=== PATIENT | male | born 1945 | race Caucasian/White ===

== ENCOUNTER 2022-05-26 14:03 | Inpatient (IN) | payer MEDICARE, OTHER ==
[~2022-05-26] VITALS: Ht 175.3 cm; Wt 75.8 kg
[~2022-05-26 14:03] MED LIST: ALBU2TAB4 PO; ASPI-543 PO; ATO40T PO; BUPR75TA10 PO; GLIP5TAB12 PO; LISI-275 PO; METF-370 PO; METO25TA5 PO; PRAS10TA18 PO; TAM04C PO
[2022-05-26] MEDS ORDERED: ASPirin 81 mg TAB PO ONE (14:30)
[2022-05-26 14:49] LABS: Basophils # (auto) 0.1 10 ^3/uL (0-0.2); Basophils % (auto) 0.9 % (0.0-2.0); Eosinophils # (auto) 0.6 10 ^3/uL (0-0.8); Eosinophils % (auto) 8.8 % (0.0-7.0); Hematocrit 40.7 % (41.0-53.0); Hemoglobin 13.5 g/dL (13.5-17.5); Lymphocytes # (auto) 1.9 10 ^3/uL (0.4-5.4); Lymphocytes % (auto) 27.3 % (10.0-50.0); Mean Corpuscular Hemoglobin 30.8 pg (28.0-32.0); Mean Corpuscular Hgb Conc. 33.3 g/dL (32.0-36.0); Mean Corpuscular Volume 92.6 fL (80.0-100.0); Monocytes # (auto) 0.4 10 ^3/uL (0-1.3); Monocytes % (auto) 5.8 % (0.0-12.0); Neutrophils # (auto) 4.1 10 ^3/uL (1.6-8.6); Neutrophils % (auto) 57.2 % (37.0-80.0); Red Blood Cells 4.39 10^6/uL (4.5-5.90); Red Cell Distribution Width 14.9 % (11.8-14.3); White Blood Cell 7.1 10^3/uL (4.4-10.8)
[2022-05-26 15:03] LABS: Albumin 3.6 g/dL (3.4-5.0); Calcium 8.8 mg/dL (8.5-10.1); Potassium 4.5 mmol/L (3.5-5.1)
[2022-05-26 15:07] LABS: BUN/Creatinine Ratio 14.4; Bilirubin, Total 0.3 mg/dL (0.2-1.0)
[2022-05-26] MEDS ORDERED: NITROGLYCERIN 0.4 MG SL TAB SL PRN (16:30)
[2022-05-26] MEDS ORDERED: PANTOPRAZOLE 40 MG/10 ML VIAL INJ IV ONE (16:30)
[2022-05-26] MEDS ORDERED: ONDANSETRON HCL 4 MG/2 ML VIAL IV PRN (16:30)
[2022-05-26] MEDS ORDERED: MORPHINE SULFATE INJ 2 MG/ml SYRG IV PRN (16:30)
[2022-05-26] MEDS ORDERED: DOCUSATE SOD 100 MG CAP PO PRN (16:30)
[2022-05-26 17:02] LABS: Cholesterol 99 mg/dL (< 200); HDL Cholesterol 47 mg/dL (40-59); LDL Cholesterol 53 mg/dL (< 100); Triglycerides 95 mg/dL (< 150)
[2022-05-26] MEDS ORDERED: NITROGLYCERIN 2% OINT 1GM PKG TD PRN (17:15)
[2022-05-26] MEDS ORDERED: hydrALAZINE HCL 20 MG/ML VL IV PRN (17:15)
[2022-05-26] MEDS ORDERED: DEXTROSE (50%) 50ML SYRG IV PRN (17:30)
[2022-05-26] MEDS: InsuLIN REG 1unit/0.01ml Soln (100units/ml) SC SCH (22:04)
[2022-05-26] MEDS: ACCU-CHEK COMFORT CURVE STRIP VI SCH (22:05)
[2022-05-26] MEDS: ATORVASTATIN 20 MG TAB PO SCH (22:05)
[2022-05-27 00:19] VITALS: BP 109/57
[2022-05-27 01:10] VITALS: BP 109/57
[2022-05-27 02:47] VITALS: BP 120/62
[2022-05-27 03:47] LABS: Urine WBC None Seen /hpf (0 - 3)
[2022-05-27 04:02] LABS: Urine Bacteria NONE SEEN /hpf (None Seen); Urine Blood 3+ /uL (Negative)
[2022-05-27 04:03] LABS: Urine Specific Gravity 1.015 (1.001-1.035)
[2022-05-27 04:52] LABS: Basophils # (auto) 0 10 ^3/uL (0-0.2); Basophils % (auto) 0.2 % (0.0-2.0); Eosinophils # (auto) 0.5 10 ^3/uL (0-0.8); Eosinophils % (auto) 7.8 % (0.0-7.0); Hematocrit 36.5 % (41.0-53.0); Hemoglobin 12.6 g/dL (13.5-17.5); Lymphocytes % (auto) 29.4 % (10.0-50.0); Mean Corpuscular Hemoglobin 31.9 pg (28.0-32.0); Mean Corpuscular Hgb Conc. 34.4 g/dL (32.0-36.0); Mean Corpuscular Volume 92.6 fL (80.0-100.0); Monocytes # (auto) 0.5 10 ^3/uL (0-1.3); Monocytes % (auto) 7.8 % (0.0-12.0); Neutrophils # (auto) 3.8 10 ^3/uL (1.6-8.6); Neutrophils % (auto) 54.8 % (37.0-80.0); Red Blood Cells 3.94 10^6/uL (4.5-5.90); Red Cell Distribution Width 14.5 % (11.8-14.3)
[2022-05-27 05:13] LABS: Albumin 3.1 g/dL (3.4-5.0); Calcium 8.4 mg/dL (8.5-10.1)
[2022-05-27 05:17] LABS: Bilirubin, Total 0.3 mg/dL (0.2-1.0); Total Protein 6.6 g/dL (6.4-8.2)
[2022-05-27] MEDS: InsuLIN REG 1unit/0.01ml Soln (100units/ml) SC SCH ×4 (07:00→22:44)
[2022-05-27] MEDS: ACCU-CHEK COMFORT CURVE STRIP VI SCH ×4 (07:17→22:29)
[2022-05-27] MEDS: METOPROLOL TARTRATE 25 MG TAB PO SCH (09:21)
[2022-05-27] MEDS: PANTOPRAZOLE 40 MG/10 ML VIAL INJ IV SCH (09:21)
[2022-05-27] MEDS: ASPirin-EC 81 mg tab PO SCH (09:21)
[2022-05-27] MEDS: LISINOPRIL 5 MG TAB PO SCH (09:22)
[2022-05-27 13:51] LABS: INR 1.06 (0.9-1.15); Partial Thromboplastin Time 25.1 sec (24.6-33.4)
[2022-05-27] MEDS: TAMSULOSIN HYDROCHLORIDE 0.4 MG CAP PO SCH (18:11)
[2022-05-27 19:25] VITALS: BP 98/46
[2022-05-27 20:00] VITALS: BP 98/46
[2022-05-27] MEDS: ATORVASTATIN 20 MG TAB PO SCH (21:57)
[2022-05-27 22:00] VITALS: BP 98/46
[2022-05-28 05:00] VITALS: BP 97/52
[2022-05-28] MEDS: ACCU-CHEK COMFORT CURVE STRIP VI SCH ×3 (06:15→17:17)
[2022-05-28] MEDS: InsuLIN REG 1unit/0.01ml Soln (100units/ml) SC SCH ×3 (06:16→17:00)
[2022-05-28 06:30] LABS: BUN/Creatinine Ratio 15.2; Calcium 8.1 mg/dL (8.5-10.1)
[2022-05-28 06:44] LABS: Basophils # (auto) 0.1 10 ^3/uL (0-0.2); Basophils % (auto) 0.6 % (0.0-2.0); Eosinophils # (auto) 0.5 10 ^3/uL (0-0.8); Eosinophils % (auto) 5.9 % (0.0-7.0); Hemoglobin 12.7 g/dL (13.5-17.5); Lymphocytes # (auto) 2.2 10 ^3/uL (0.4-5.4); Lymphocytes % (auto) 26.7 % (10.0-50.0); Mean Corpuscular Hemoglobin 31.3 pg (28.0-32.0); Mean Corpuscular Hgb Conc. 33.5 g/dL (32.0-36.0); Mean Corpuscular Volume 93.6 fL (80.0-100.0); Monocytes # (auto) 0.5 10 ^3/uL (0-1.3); Monocytes % (auto) 6.3 % (0.0-12.0); Neutrophils # (auto) 4.9 10 ^3/uL (1.6-8.6); Neutrophils % (auto) 60.5 % (37.0-80.0); Nucleated Red Blood Cells % 0.1 %; Red Blood Cells 4.06 10^6/uL (4.5-5.90); Red Cell Distribution Width 14.8 % (11.8-14.3); White Blood Cell 8.1 10^3/uL (4.4-10.8)
[2022-05-28] MEDS ORDERED: ADENOSINE 64 MG in GIVE UN-DILUTED 0 ML IV STA (07:41)
[2022-05-28 08:00] VITALS: BP 102/45
[2022-05-28 08:46] VITALS: BP 108/53
[2022-05-28 09:17] VITALS: BP 102/45
[2022-05-28] MEDS: ASPirin-EC 81 mg tab PO SCH (11:06)
[2022-05-28] MEDS: LISINOPRIL 5 MG TAB PO SCH (11:06)
[2022-05-28] MEDS: PANTOPRAZOLE 40 MG/10 ML VIAL INJ IV SCH (11:06)
[2022-05-28] MEDS: METOPROLOL TARTRATE 25 MG TAB PO SCH (11:06)
[2022-05-28 12:57] VITALS: BP 109/57
[2022-05-28] MEDS: TAMSULOSIN HYDROCHLORIDE 0.4 MG CAP PO SCH (17:38)
[2022-05-28 18:36] VITALS: BP 109/57
== END 2022-05-28 19:20 | disposition home or self-care (01) | DRG 696 ==
LOC: ER 14:03 → TELE 16:26 → TELE-WESTW 05-27 18:39
PROVIDERS: ADMIT Nurse Practitioner Family; ATTEND Nurse Practitioner Acute Care
PROC: 5A09357 Assistance with Respiratory Ventilation, Less than 24 Consecutive Hours, Continuous Positive Airway Pressure (ICD-10-PCS; principal; 2022-05-27)
DX: R31.0 Gross hematuria (principal); I25.110 Atherosclerotic heart disease of native coronary artery with unstable angina pectoris; I24.9 Acute ischemic heart disease, unspecified; E78.5 Hyperlipidemia, unspecified; J44.9 Chronic obstructive pulmonary disease, unspecified; E11.9 Type 2 diabetes mellitus without complications; F17.210 Nicotine dependence, cigarettes, uncomplicated; I10 Essential (primary) hypertension; F32.A Depression, unspecified; N40.0 Benign prostatic hyperplasia without lower urinary tract symptoms; Z82.0 Family history of epilepsy and other diseases of the nervous system; Z82.49 Family history of ischemic heart disease and other diseases of the circulatory system; Z95.5 Presence of coronary angioplasty implant and graft
CPT/HCPCS: 36415; 71045; 74176; 76775; 78452; 80048; 80053; 80061; 81001; 82962; 83036; 83880; 84154; 84443; 84484; 85025; 85379; 85610; 85730; 87426; 93005; 93017; 93306; 94660; 96374; C9113; G0378; J0153; J1815

== ENCOUNTER 2022-07-01 21:16 | Inpatient (IN) | payer OTHER ==
[~2022-07-01] VITALS: Ht 175.3 cm; Wt 75.8 kg
[2022-07-01] MEDS ORDERED: MORPHINE SULFATE 4 MG/ML SYR/VIAL IM ONE (22:15)
[2022-07-01 23:25] LABS: Basophils # (auto) 0.1 10 ^3/uL (0-0.2); Basophils % (auto) 1.1 % (0.0-2.0); Eosinophils # (auto) 0.5 10 ^3/uL (0-0.8); Eosinophils % (auto) 6.4 % (0.0-7.0); Hematocrit 37.2 % (41.0-53.0); Hemoglobin 12.2 g/dL (13.5-17.5); Lymphocytes # (auto) 2.3 10 ^3/uL (0.4-5.4); Lymphocytes % (auto) 27.7 % (10.0-50.0); Mean Corpuscular Hemoglobin 30.7 pg (28.0-32.0); Mean Corpuscular Hgb Conc. 32.9 g/dL (32.0-36.0); Mean Corpuscular Volume 93.4 fL (80.0-100.0); Monocytes # (auto) 0.5 10 ^3/uL (0-1.3); Monocytes % (auto) 6.3 % (0.0-12.0); Neutrophils # (auto) 4.8 10 ^3/uL (1.6-8.6); Neutrophils % (auto) 58.5 % (37.0-80.0); Red Blood Cells 3.98 10^6/uL (4.5-5.90); Red Cell Distribution Width 15.2 % (11.8-14.3); White Blood Cell 8.2 10^3/uL (4.4-10.8)
[2022-07-01] MEDS ORDERED: LIDOCAINE VISCOUS 2% 15ML UD ONE ×2 (23:29→23:33)
[2022-07-01 23:44] LABS: Alanine Aminotransferase 28 U/L (16-61); Albumin 3.5 g/dL (3.4-5.0); Anion Gap 8 (5-15); Aspartate Aminotransferase 18 U/L (15-37); BUN/Creatinine Ratio 13.2; Blood Urea Nitrogen 18 mg/dL (7-18); Calcium 8.5 mg/dL (8.5-10.1); Carbon Dioxide 23 mmol/L (21-32); Chloride 110 mmol/L (98-107); GFR African American 66 mL/min; GFR Non-African American 54 mL/min; Glucose 82 mg/dL (74-106); Magnesium 2.2 mg/dL (1.6-2.6); Sodium 141 mmol/L (136-145)
[2022-07-01 23:46] LABS: Alkaline Phosphatase 78 U/L (45-117); Bilirubin, Total 0.3 mg/dL (0.2-1.0); Total Protein 6.9 g/dL (6.4-8.2)
[2022-07-02] MEDS ORDERED: ACETAMINOPHEN 325 MG TAB PO PRN (01:30)
[2022-07-02] MEDS ORDERED: DEXTROSE (50%) 50ML SYRG IV PRN (01:30)
[2022-07-02] MEDS ORDERED: ONDANSETRON HCL 4 MG/2 ML VIAL IV PRN (01:30)
[2022-07-02 02:45] LABS: INR 1.08 (0.9-1.15); Partial Thromboplastin Time 23.9 sec (24.6-33.4)
[2022-07-02] MEDS: HYDROcodone-ACET 5/325MG TAB PO PRN ×2 (05:18→12:10)
[2022-07-02 05:22] LABS: Hematocrit 33.1 % (41.0-53.0)
[2022-07-02] MEDS: ACCU-CHEK COMFORT CURVE STRIP VI SCH ×4 (06:39→21:45)
[2022-07-02] MEDS: InsuLIN REG 1unit/0.01ml Soln (100units/ml) SC SCH ×4 (06:43→21:58)
[2022-07-02 06:54] LABS: Urine Bacteria NONE SEEN /hpf (None Seen); Urine WBC 143 /hpf (0 - 3)
[2022-07-02 07:02] LABS: Urine Specific Gravity 1.015 (1.001-1.035)
[2022-07-02 07:03] LABS: Urine Blood 4+ /uL (Negative)
[2022-07-02] MEDS: METOPROLOL TARTRATE 25 MG TAB PO SCH (10:50)
[2022-07-02] MEDS: PANTOPRAZOLE 40 MG TAB PO SCH (10:51)
[2022-07-02 13:13] LABS: Hematocrit 31.2 % (41.0-53.0); Hemoglobin 10.3 g/dL (13.5-17.5)
[2022-07-02] MEDS ORDERED: cefTRIAXone 1GM/50ML D5W 50 ML IV ONE (16:45)
[2022-07-02 18:40] VITALS: BP 103/68
[2022-07-02] MEDS: TAMSULOSIN HYDROCHLORIDE 0.4 MG CAP PO SCH (19:03)
[2022-07-02] MEDS: ATORVASTATIN 20 MG TAB PO SCH (21:45)
[2022-07-02 22:00] VITALS: BP 100/43
[2022-07-03 01:22] VITALS: BP 100/43
[2022-07-03 03:00] VITALS: BP 100/43
[2022-07-03 05:00] VITALS: BP 102/47
[2022-07-03 06:36] LABS: Basophils # (auto) 0 10 ^3/uL (0-0.2); Basophils % (auto) 0.5 % (0.0-2.0); Eosinophils # (auto) 0.4 10 ^3/uL (0-0.8); Eosinophils % (auto) 4.2 % (0.0-7.0); Hematocrit 28.6 % (41.0-53.0); Hemoglobin 9.5 g/dL (13.5-17.5); Lymphocytes # (auto) 2.3 10 ^3/uL (0.4-5.4); Lymphocytes % (auto) 25.5 % (10.0-50.0); Mean Corpuscular Hemoglobin 31.2 pg (28.0-32.0); Mean Corpuscular Hgb Conc. 33.3 g/dL (32.0-36.0); Mean Corpuscular Volume 93.8 fL (80.0-100.0); Monocytes # (auto) 0.6 10 ^3/uL (0-1.3); Neutrophils # (auto) 5.6 10 ^3/uL (1.6-8.6); Neutrophils % (auto) 62.8 % (37.0-80.0); Red Blood Cells 3.04 10^6/uL (4.5-5.90); Red Cell Distribution Width 14.9 % (11.8-14.3)
[2022-07-03] MEDS: ACCU-CHEK COMFORT CURVE STRIP VI SCH ×4 (06:39→21:33)
[2022-07-03] MEDS: InsuLIN REG 1unit/0.01ml Soln (100units/ml) SC SCH ×4 (06:42→22:44)
[2022-07-03 06:52] LABS: BUN/Creatinine Ratio 14.7; Calcium 8.2 mg/dL (8.5-10.1); Potassium 4.3 mmol/L (3.5-5.1)
[2022-07-03 09:00] VITALS: BP 108/48
[2022-07-03] MEDS: cefTRIAXone 1GM/50ML D5W 50 ML IV SCH (09:00)
[2022-07-03] MEDS: PANTOPRAZOLE 40 MG TAB PO SCH (09:00)
[2022-07-03] MEDS: METOPROLOL TARTRATE 25 MG TAB PO SCH (09:05)
[2022-07-03] MEDS: SODIUM CHLORIDE 0.9% 1,000 ML IV SCH (12:38)
[2022-07-03 13:00] VITALS: BP 107/74
[2022-07-03] MEDS ORDERED: PROPOFOL 10 MG/ML 20 ML IV ONE (13:14)
[2022-07-03] MEDS ORDERED: ONDANSETRON HCL 4 MG/2 ML VIAL IV ONE (13:14)
[2022-07-03] MEDS ORDERED: SUCCINYLCHOLINE CHLORIDE 20 MG/ML 10ML VIAL IV ONE (13:14)
[2022-07-03] MEDS ORDERED: ROCURONIUM 10MG/ML 10ML VIAL IV ONE (13:14)
[2022-07-03] MEDS: ALBUTEROL SULF 2.5 MG/0.5ML(0.5%) NEB SOLN NEB SCH ×2 (13:59→18:00)
[2022-07-03] MEDS: IPRATROPIUM BROM 0.5 MG/2.5ML INH SOL NEB SCH ×2 (13:59→18:00)
[2022-07-03 14:26] LABS: Hemoglobin 9.7 g/dL (13.5-17.5)
[2022-07-03] MEDS ORDERED: IOHEXOL 350 MG/ML 100ML IJ ONE (14:28)
[2022-07-03] MEDS ORDERED: fentaNYL CITRATE 100 MCG/2 ML VL ONE (17:39)
[2022-07-03] MEDS ORDERED: MIDAZOLAM HCL 2MG/2ML 2ml VIAL (1mg/ml) ONE (17:39)
[2022-07-03] MEDS ORDERED: LIDOCAINE HCL 2 %PF INJ 10ML AMP IJ ONE (17:47)
[2022-07-03] MEDS: TAMSULOSIN HYDROCHLORIDE 0.4 MG CAP PO SCH (18:00)
[2022-07-03] MEDS ORDERED: ONDANSETRON HCL 4 MG/2 ML VIAL IV PRN (18:30)
[2022-07-03] MEDS ORDERED: HYDROmorphone HCL 2 MG/ML VL/or syr IV PRN (18:30)
[2022-07-03] MEDS: HYDROmorphone HCL 2 MG/ML VL/or syr IV PRN ×3 (19:50→20:15)
[2022-07-03 22:15] VITALS: BP 121/57
[2022-07-03] MEDS: ATORVASTATIN 20 MG TAB PO SCH (22:46)
[2022-07-04] MEDS: SODIUM CHLORIDE 0.9% 1,000 ML IV SCH ×2 (01:35→18:24)
[2022-07-04 05:30] VITALS: BP 106/55
[2022-07-04 06:37] LABS: Basophils # (auto) 0 10 ^3/uL (0-0.2); Basophils % (auto) 0.5 % (0.0-2.0); Eosinophils # (auto) 0.3 10 ^3/uL (0-0.8); Eosinophils % (auto) 3.5 % (0.0-7.0); Hematocrit 27.3 % (41.0-53.0); Hemoglobin 9.3 g/dL (13.5-17.5); Lymphocytes # (auto) 0.6 10 ^3/uL (0.4-5.4); Mean Corpuscular Hemoglobin 31.9 pg (28.0-32.0); Mean Corpuscular Hgb Conc. 33.9 g/dL (32.0-36.0); Mean Corpuscular Volume 93.9 fL (80.0-100.0); Monocytes # (auto) 0.4 10 ^3/uL (0-1.3); Neutrophils # (auto) 7.4 10 ^3/uL (1.6-8.6); Red Cell Distribution Width 14.4 % (11.8-14.3); White Blood Cell 8.8 10^3/uL (4.4-10.8)
[2022-07-04] MEDS: ALBUTEROL SULF 2.5 MG/0.5ML(0.5%) NEB SOLN NEB SCH ×4 (06:43→18:49)
[2022-07-04] MEDS: IPRATROPIUM BROM 0.5 MG/2.5ML INH SOL NEB SCH ×4 (06:43→18:48)
[2022-07-04] MEDS: ACCU-CHEK COMFORT CURVE STRIP VI SCH ×4 (06:44→21:19)
[2022-07-04] MEDS: InsuLIN REG 1unit/0.01ml Soln (100units/ml) SC SCH ×4 (06:47→21:21)
[2022-07-04 07:34] LABS: BUN/Creatinine Ratio 12.4; Calcium 7.7 mg/dL (8.5-10.1); Potassium 4.7 mmol/L (3.5-5.1)
[2022-07-04 08:15] VITALS: BP 102/49
[2022-07-04] MEDS ORDERED: BELLADONNA ALKAL/OPIUM (16.2/30MG) RECT SUPP PR SCH (10:00)
[2022-07-04] MEDS: cefTRIAXone 1GM/50ML D5W 50 ML IV SCH (10:08)
[2022-07-04 12:20] VITALS: BP 104/53
[2022-07-04 16:25] VITALS: BP 126/54
[2022-07-04] MEDS: TAMSULOSIN HYDROCHLORIDE 0.4 MG CAP PO SCH (18:24)
[2022-07-04 20:00] VITALS: BP 116/56
[2022-07-04] MEDS: ATORVASTATIN 20 MG TAB PO SCH (21:23)
[2022-07-04 22:00] VITALS: BP 116/56
[2022-07-05] MEDS: IPRATROPIUM BROM 0.5 MG/2.5ML INH SOL NEB SCH ×3 (00:15→12:20)
[2022-07-05] MEDS: ALBUTEROL SULF 2.5 MG/0.5ML(0.5%) NEB SOLN NEB SCH ×3 (00:15→12:20)
[2022-07-05] MEDS: SODIUM CHLORIDE 0.9% 1,000 ML IV SCH ×2 (04:15→17:35)
[2022-07-05 05:00] VITALS: BP 121/59
[2022-07-05] MEDS: HYDROcodone-ACET 5/325MG TAB PO PRN (05:14)
[2022-07-05 05:59] LABS: Basophils # (auto) 0 10 ^3/uL (0-0.2); Basophils % (auto) 0.3 % (0.0-2.0); Eosinophils # (auto) 0.3 10 ^3/uL (0-0.8); Eosinophils % (auto) 4.1 % (0.0-7.0); Hematocrit 25.9 % (41.0-53.0); Hemoglobin 8.6 g/dL (13.5-17.5); Lymphocytes # (auto) 1.1 10 ^3/uL (0.4-5.4); Lymphocytes % (auto) 13.8 % (10.0-50.0); Mean Corpuscular Hemoglobin 31.4 pg (28.0-32.0); Mean Corpuscular Hgb Conc. 33.2 g/dL (32.0-36.0); Mean Corpuscular Volume 94.6 fL (80.0-100.0); Monocytes # (auto) 0.5 10 ^3/uL (0-1.3); Monocytes % (auto) 6.4 % (0.0-12.0); Neutrophils % (auto) 75.4 % (37.0-80.0); Red Blood Cells 2.74 10^6/uL (4.5-5.90); Red Cell Distribution Width 14.6 % (11.8-14.3); White Blood Cell 7.9 10^3/uL (4.4-10.8)
[2022-07-05 06:32] LABS: BUN/Creatinine Ratio 11.5; Calcium 8.2 mg/dL (8.5-10.1); Potassium 4.2 mmol/L (3.5-5.1)
[2022-07-05] MEDS: ACCU-CHEK COMFORT CURVE STRIP VI SCH ×3 (07:00→17:00)
[2022-07-05] MEDS: InsuLIN REG 1unit/0.01ml Soln (100units/ml) SC SCH ×3 (07:36→17:00)
[2022-07-05 08:00] VITALS: BP 102/49
[2022-07-05 09:00] VITALS: BP 102/49
[2022-07-05] MEDS ORDERED: CEPH-510 PO (10:15)
[2022-07-05] MEDS ORDERED: TAM04C PO (10:15)
[2022-07-05 13:00] VITALS: BP 106/52
[2022-07-05] MEDS: cefTRIAXone 1GM/50ML D5W 50 ML IV SCH (14:00)
[2022-07-05 16:19] VITALS: BP 111/50
== END 2022-07-05 17:35 | disposition home or self-care (01) | DRG 668 ==
LOC: ER 21:20 → OVERFLOW 07-02 01:29 → CENTRAL 07-02 17:38
PROVIDERS: ADMIT Nurse Practitioner; ATTEND Internal Medicine
PROC: 0TCB8ZZ Extirpation of Matter from Bladder, Via Natural or Artificial Opening Endoscopic (ICD-10-PCS; 2022-07-03)
PROC: 5A09357 Assistance with Respiratory Ventilation, Less than 24 Consecutive Hours, Continuous Positive Airway Pressure (ICD-10-PCS; 2022-07-03)
PROC: 0TBB8ZZ Excision of Bladder, Via Natural or Artificial Opening Endoscopic (ICD-10-PCS; principal; 2022-07-03 17:40)
PROC: 5A09357 Assistance with Respiratory Ventilation, Less than 24 Consecutive Hours, Continuous Positive Airway Pressure (ICD-10-PCS; 2022-07-04)
DX: C67.9 Malignant neoplasm of bladder, unspecified (principal); J96.01 Acute respiratory failure with hypoxia; J98.11 Atelectasis; R31.0 Gross hematuria; I10 Essential (primary) hypertension; E11.9 Type 2 diabetes mellitus without complications; D64.9 Anemia, unspecified; J44.9 Chronic obstructive pulmonary disease, unspecified; Z20.822 Contact with and (suspected) exposure to COVID-19; F17.210 Nicotine dependence, cigarettes, uncomplicated; F32.A Depression, unspecified; I25.10 Atherosclerotic heart disease of native coronary artery without angina pectoris; Z82.0 Family history of epilepsy and other diseases of the nervous system; Z82.49 Family history of ischemic heart disease and other diseases of the circulatory system; Z79.899 Other long term (current) drug therapy; Z79.84 Long term (current) use of oral hypoglycemic drugs
CPT/HCPCS: 36415; 36600; 71045; 71046; 71275; 80048; 80053; 81001; 82805; 82962; 83021; 83735; 83880; 84154; 84484; 85014; 85018; 85025; 85610; 85660; 85730; 86850; 86900; 86901; 87426; 93005; 94640; 94660; 96372; 97116; 97163; 97530; G0378; J0330; J0696; J1815; J2250; J2405; J2704

== ENCOUNTER 2022-11-23 12:56 | Emergency (ER) | payer OTHER ==
[~2022-11-23 12:56] MED LIST changes: -ASPI-543 PO; +CEPH-510 PO; -PRAS10TA18 PO
[2022-11-23 14:34] LABS: Basophils # (auto) 0.1 10 ^3/uL (0-0.2); Basophils % (auto) 0.8 % (0.0-2.0); Eosinophils # (auto) 0.5 10 ^3/uL (0-0.8); Eosinophils % (auto) 6.4 % (0.0-7.0); Hematocrit 27.7 % (41.0-53.0); Hemoglobin 8.8 g/dL (13.5-17.5); Lymphocytes # (auto) 1.3 10 ^3/uL (0.4-5.4); Mean Corpuscular Hemoglobin 25.8 pg (28.0-32.0); Mean Corpuscular Hgb Conc. 31.7 g/dL (32.0-36.0); Mean Corpuscular Volume 81.3 fL (80.0-100.0); Monocytes # (auto) 0.5 10 ^3/uL (0-1.3); Monocytes % (auto) 5.7 % (0.0-12.0); Neutrophils % (auto) 71.1 % (37.0-80.0); Red Cell Distribution Width 16.8 % (11.8-14.3); White Blood Cell 8.4 10^3/uL (4.4-10.8)
[2022-11-23 14:48] LABS: Albumin 2.7 g/dL (3.4-5.0); Calcium 8.9 mg/dL (8.5-10.1)
[2022-11-23 14:51] LABS: BUN/Creatinine Ratio 9.3 (10.0-20.0); Bilirubin, Total 0.3 mg/dL (0.2-1.0); INR 1.11 (0.9-1.15); Partial Thromboplastin Time 26.3 sec (24.6-33.4); Total Protein 7.2 g/dL (6.4-8.2)
[2022-11-23] MEDS ORDERED: SODI1ENE4 PR (16:25)
[2022-11-23 17:05] VITALS: BP 128/67
== END 2022-11-23 17:43 | disposition home or self-care (01) ==
LOC: ER 12:59
DX: K59.00 Constipation, unspecified (principal); J44.9 Chronic obstructive pulmonary disease, unspecified; I10 Essential (primary) hypertension; I25.2 Old myocardial infarction; E11.9 Type 2 diabetes mellitus without complications; E78.5 Hyperlipidemia, unspecified; F17.210 Nicotine dependence, cigarettes, uncomplicated; Z79.899 Other long term (current) drug therapy
CPT/HCPCS: 36415; 74176; 80053; 85025; 85610; 85730; 93005

== ENCOUNTER 2023-01-24 20:50 | Emergency (ER) | payer OTHER ==
[~2023-01-24] VITALS: Ht 175.3 cm; Wt 70.7 kg
[~2023-01-24 20:50] MED LIST changes: +ALBU2TAB11 PO; -ALBU2TAB4 PO; -BUPR75TA10 PO; +BUPR75TA96 PO; +SODI1ENE4 PR; -TAM04C PO; +TAMS-35 PO
[2023-01-24 22:23] LABS: Basophils # (auto) 0.1 10 ^3/uL (0-0.2); Eosinophils # (auto) 0.5 10 ^3/uL (0-0.8); Mean Corpuscular Volume 76.6 fL (80.0-100.0); Neutrophils # (auto) 5.9 10 ^3/uL (1.6-8.6); White Blood Cell 8.5 10^3/uL (4.4-10.8)
[2023-01-24 22:24] LABS: Basophils % (auto) 0.8 % (0.0-2.0); Eosinophils % (auto) 5.9 % (0.0-7.0); Hematocrit 19.5 % (41.0-53.0); Lymphocytes # (auto) 1.4 10 ^3/uL (0.4-5.4); Lymphocytes % (auto) 17.1 % (10.0-50.0); Mean Corpuscular Hemoglobin 24.4 pg (28.0-32.0); Mean Corpuscular Hgb Conc. 31.8 g/dL (32.0-36.0); Monocytes # (auto) 0.6 10 ^3/uL (0-1.3); Monocytes % (auto) 7.1 % (0.0-12.0); Neutrophils % (auto) 69.1 % (37.0-80.0); Red Blood Cells 2.54 10^6/uL (4.5-5.90); Red Cell Distribution Width 19.9 % (11.8-14.3)
[2023-01-24 22:51] LABS: Albumin 2.7 g/dL (3.4-5.0); Calcium 8.2 mg/dL (8.5-10.1); Potassium 4.5 mmol/L (3.5-5.1)
[2023-01-24 22:55] LABS: BUN/Creatinine Ratio 14.3 (10.0-20.0); Bilirubin, Total 0.2 mg/dL (0.2-1.0); Total Protein 6.9 g/dL (6.4-8.2)
[2023-01-24 22:56] LABS: Hemoglobin 6.2 g/dL (13.5-17.5)
[2023-01-24 22:57] LABS: Urine Bacteria NONE SEEN /hpf (None Seen); Urine Blood 3+ /uL (Negative); Urine WBC 639 /hpf (0 - 3)
[2023-01-25] VITALS (11 sets, daily range): BP systolic 105–119; BP diastolic 47–61
[2023-01-25] MEDS ORDERED: DOCUSATE SOD 100 MG CAP PO PRN (02:30)
[2023-01-25] MEDS ORDERED: HYDROcodone-ACET 5/325MG TAB PO PRN (02:30)
[2023-01-25] MEDS ORDERED: DEXTROSE (50%) 50ML SYRG IV PRN (02:30)
[2023-01-25] MEDS ORDERED: ONDANSETRON HCL 4 MG/2 ML VIAL IV PRN (02:30)
[2023-01-25] MEDS ORDERED: ALBUTEROL SULF 2.5 MG/0.5ML(0.5%) NEB SOLN NEB PRN (02:30)
[2023-01-25] MEDS ORDERED: cefTRIAXone 1GM/50ML D5W 50 ML IV ONE (02:30)
[2023-01-25] MEDS ORDERED: ACETAMINOPHEN 325 MG TAB PO PRN (02:30)
[2023-01-25] MEDS ORDERED: SODIUM CHLORIDE 0.9% 1,000 ML IV SCH (02:30)
[2023-01-25] MEDS ORDERED: ACCU-CHEK COMFORT CURVE STRIP VI SCH (07:00)
[2023-01-25] MEDS ORDERED: InsuLIN REG 1unit/0.01ml Soln (100units/ml) SC SCH (07:00)
[2023-01-25] MEDS ORDERED: CIPR-173 PO (08:09)
[2023-01-25] MEDS ORDERED: ASPirin 81 mg TAB PO SCH (10:00)
[2023-01-25] MEDS ORDERED: METOPROLOL TARTRATE 25 MG TAB PO SCH (10:00)
[2023-01-25] MEDS ORDERED: MULTIPLE VITAMIN TAB PO SCH (10:00)
[2023-01-25] MEDS ORDERED: cefTRIAXone 1GM/50ML D5W 50 ML IV SCH (21:00)
[2023-01-25] MEDS ORDERED: ATORVASTATIN 20 MG TAB PO SCH (22:00)
== END 2023-01-25 08:47 | disposition home or self-care (01) ==
LOC: ER 20:50
DX: D64.9 Anemia, unspecified (principal); R31.0 Gross hematuria; J44.9 Chronic obstructive pulmonary disease, unspecified; I10 Essential (primary) hypertension; E11.9 Type 2 diabetes mellitus without complications; R42 Dizziness and giddiness; Z85.51 Personal history of malignant neoplasm of bladder; Z88.1 Allergy status to other antibiotic agents; E78.5 Hyperlipidemia, unspecified; F17.210 Nicotine dependence, cigarettes, uncomplicated
CPT/HCPCS: 36415; 36430; 80053; 81001; 84484; 85025; 86850; 86900; 86901; 86920; 87086; 93005; 96365; 99285; J0696; J7030; P9016

== ENCOUNTER 2023-02-05 07:43 | Inpatient (IN) | payer MEDICARE, OTHER ==
[2023-02-05] VITALS (8 sets, daily range): BP systolic 104–109; BP diastolic 49–53; PULSE 75–89; RESP 17–20; TEMP 97.7–97.9; O2SAT 92–97
[~2023-02-05] VITALS: Ht 175.3 cm; Wt 68.7 kg
[~2023-02-05 07:43] MED LIST changes: +CIPR-173 PO
[2023-02-05 08:17] LABS: Basophils # (auto) 0.1 10 ^3/uL (0-0.2); Neutrophils # (auto) 7.9 10 ^3/uL (1.6-8.6); White Blood Cell 9.9 10^3/uL (4.4-10.8)
[2023-02-05 08:18] LABS: Basophils % (auto) 0.6 % (0.0-2.0); Eosinophils # (auto) 0.4 10 ^3/uL (0-0.8); Eosinophils % (auto) 3.9 % (0.0-7.0); Hematocrit 22.2 % (41.0-53.0); Lymphocytes % (auto) 10.3 % (10.0-50.0); Mean Corpuscular Hemoglobin 25.1 pg (28.0-32.0); Mean Corpuscular Hgb Conc. 31.2 g/dL (32.0-36.0); Mean Corpuscular Volume 80.4 fL (80.0-100.0); Monocytes # (auto) 0.5 10 ^3/uL (0-1.3); Monocytes % (auto) 5.4 % (0.0-12.0); Neutrophils % (auto) 79.8 % (37.0-80.0); Red Blood Cells 2.76 10^6/uL (4.5-5.90)
[2023-02-05] MEDS ORDERED: ONDANSETRON HCL 4 MG/2 ML VIAL IV ONE (08:30)
[2023-02-05 08:34] LABS: Red Cell Distribution Width 21.2 % (11.8-14.3)
[2023-02-05 08:36] LABS: INR 1.14 (0.9-1.15); Partial Thromboplastin Time 24.7 SEC (24.5-34.5)
[2023-02-05 08:48] LABS: Hemoglobin 6.9 g/dL (13.5-17.5)
[2023-02-05 09:42] LABS: Albumin 2.7 g/dL (3.4-5.0); Calcium 9.5 mg/dL (8.5-10.1); Potassium 5.2 mmol/L (3.5-5.1)
[2023-02-05 09:45] LABS: BUN/Creatinine Ratio 10.7 (10.0-20.0); Bilirubin, Total 0.3 mg/dL (0.2-1.0)
[2023-02-05] MEDS ORDERED: SODIUM CHLORIDE 0.9% 1,000 ML IV ONE (12:15)
[2023-02-05] MEDS ORDERED: NITROGLYCERIN 0.4 MG SL TAB SL PRN (12:15)
[2023-02-05] MEDS ORDERED: IPRATROPIUM BROM 0.5 MG/2.5ML INH SOL NEB PRN (12:15)
[2023-02-05] MEDS ORDERED: MORPHINE SULFATE INJ 2 MG/ml SYRG IV PRN (12:15)
[2023-02-05] MEDS ORDERED: DEXTROSE (50%) 50ML SYRG IV PRN (12:15)
[2023-02-05] MEDS ORDERED: ALBUTEROL SULF 2.5 MG/0.5ML(0.5%) NEB SOLN NEB PRN (12:15)
[2023-02-05] MEDS: HYDROcodone-ACET 5/325MG TAB PO PRN ×2 (12:20→18:32)
[2023-02-05] MEDS ORDERED: hydrALAZINE HCL 20 MG/ML VL IV PRN (12:30)
[2023-02-05 12:38] LABS: Urine Bacteria NONE SEEN /hpf (None Seen); Urine Blood 3+ /uL (Negative); Urine WBC 928 /hpf (0 - 3); Urine WBC Clumps PRESENT /hpf (None Seen)
[2023-02-05 12:41] LABS: Urine Specific Gravity 1.025 (1.001-1.035)
[2023-02-05 12:51] LABS: % Iron Saturation 3.6 % (20-55)
[2023-02-05] MEDS: InsuLIN REG 1unit/0.01ml Soln (100units/ml) SC SCH ×2 (17:00→22:00)
[2023-02-05 17:30] LABS: Hematocrit 22.2 % (41.0-53.0); Hemoglobin 7.1 g/dL (13.5-17.5)
[2023-02-05] MEDS: ACCU-CHEK COMFORT CURVE STRIP VI SCH ×2 (17:53→22:00)
[2023-02-05] MEDS: TAMSULOSIN HYDROCHLORIDE 0.4 MG CAP PO SCH (17:59)
[2023-02-06] VITALS (16 sets, daily range): BP systolic 91–125; BP diastolic 43–56; PULSE 58–96; RESP 14–55; TEMP 97.7–98.7; O2SAT 92–100
[2023-02-06] MEDS: HYDROcodone-ACET 5/325MG TAB PO PRN ×2 (05:47→10:45)
[2023-02-06] MEDS: ACCU-CHEK COMFORT CURVE STRIP VI SCH ×3 (05:48→17:00)
[2023-02-06] MEDS: InsuLIN REG 1unit/0.01ml Soln (100units/ml) SC SCH ×4 (05:50→22:00)
[2023-02-06 06:45] LABS: Potassium 4.6 mmol/L (3.5-5.1)
[2023-02-06 06:47] LABS: Basophils # (auto) 0 10 ^3/uL (0-0.2); Eosinophils # (auto) 0.6 10 ^3/uL (0-0.8); Monocytes # (auto) 0.6 10 ^3/uL (0-1.3); White Blood Cell 8.1 10^3/uL (4.4-10.8)
[2023-02-06 06:50] LABS: Basophils % (auto) 0.6 % (0.0-2.0); Hematocrit 21.4 % (41.0-53.0); Lymphocytes # (auto) 1.4 10 ^3/uL (0.4-5.4); Lymphocytes % (auto) 17.7 % (10.0-50.0); Mean Corpuscular Volume 81.3 fL (80.0-100.0); Monocytes % (auto) 7.3 % (0.0-12.0); Neutrophils # (auto) 5.4 10 ^3/uL (1.6-8.6); Neutrophils % (auto) 67.4 % (37.0-80.0); Nucleated Red Blood Cells % 0.1 %; Red Blood Cells 2.63 10^6/uL (4.5-5.90)
[2023-02-06 06:52] LABS: Red Cell Distribution Width 21.1 % (11.8-14.3)
[2023-02-06 06:53] LABS: Hemoglobin 6.8 g/dL (13.5-17.5)
[2023-02-06 06:59] LABS: Albumin 2.2 g/dL (3.4-5.0); Calcium 7.9 mg/dL (8.5-10.1)
[2023-02-06 07:01] LABS: Bilirubin, Total 0.2 mg/dL (0.2-1.0); Total Protein 6.1 g/dL (6.4-8.2)
[2023-02-06] MEDS: METOPROLOL TARTRATE 25 MG TAB PO SCH (09:13)
[2023-02-06] MEDS: ATORVASTATIN 20 MG TAB PO SCH (09:14)
[2023-02-06] MEDS ORDERED: PANTOPRAZOLE 40 MG TAB PO SCH (10:00)
[2023-02-06] MEDS ORDERED: ALBUTEROL SULF 2.5 MG/0.5ML(0.5%) NEB SOLN NEB PRN (14:30)
[2023-02-06] MEDS ORDERED: IPRATROPIUM BROM 0.5 MG/2.5ML INH SOL NEB PRN (14:30)
[2023-02-06] MEDS: OXYCODONE W/ ACETAMINOPHEN 5/325MG TABLET PO PRN (18:54)
[2023-02-06] MEDS: TAMSULOSIN HYDROCHLORIDE 0.4 MG CAP PO SCH (18:55)
[2023-02-07] VITALS (10 sets, daily range): BP systolic 104–124; BP diastolic 51–74; PULSE 58–72; RESP 16–24; TEMP 97.6–98.6; O2SAT 80–96
[2023-02-07] MEDS: ACCU-CHEK COMFORT CURVE STRIP VI SCH ×4 (01:08→17:30)
[2023-02-07] MEDS: MORPHINE SULFATE INJ 2 MG/ml SYRG IV PRN (03:19)
[2023-02-07 06:03] LABS: BUN/Creatinine Ratio 12.5 (10.0-20.0); Potassium 4.6 mmol/L (3.5-5.1)
[2023-02-07 06:06] LABS: Basophils # (auto) 0 10 ^3/uL (0-0.2); Basophils % (auto) 0.5 % (0.0-2.0); Eosinophils # (auto) 0.6 10 ^3/uL (0-0.8); Eosinophils % (auto) 6.5 % (0.0-7.0); Hemoglobin 8.9 g/dL (13.5-17.5); Lymphocytes # (auto) 1.5 10 ^3/uL (0.4-5.4); Lymphocytes % (auto) 16.5 % (10.0-50.0); Mean Corpuscular Hemoglobin 27.4 pg (28.0-32.0); Mean Corpuscular Hgb Conc. 32.9 g/dL (32.0-36.0); Mean Corpuscular Volume 83.4 fL (80.0-100.0); Monocytes # (auto) 0.7 10 ^3/uL (0-1.3); Monocytes % (auto) 7.7 % (0.0-12.0); Neutrophils # (auto) 6.4 10 ^3/uL (1.6-8.6); Neutrophils % (auto) 68.8 % (37.0-80.0); Red Blood Cells 3.24 10^6/uL (4.5-5.90); White Blood Cell 9.3 10^3/uL (4.4-10.8)
[2023-02-07 06:46] LABS: Red Cell Distribution Width 20.4 % (11.8-14.3)
[2023-02-07] MEDS: InsuLIN REG 1unit/0.01ml Soln (100units/ml) SC SCH ×4 (07:00→22:00)
[2023-02-07] MEDS: OXYCODONE W/ ACETAMINOPHEN 5/325MG TABLET PO PRN ×2 (07:01→23:56)
[2023-02-07] MEDS: METOPROLOL TARTRATE 25 MG TAB PO SCH (10:02)
[2023-02-07] MEDS: ATORVASTATIN 20 MG TAB PO SCH (10:02)
[2023-02-07] MEDS: SODIUM FERR GLUC 62.5MG/5ML 125 MG in SODIUM CHL 0.9% 100 ML IV SCH (14:30)
[2023-02-07 14:48] LABS: Hepatitis C Antibody Negative (Negative)
[2023-02-07] MEDS: TAMSULOSIN HYDROCHLORIDE 0.4 MG CAP PO SCH (18:06)
[2023-02-08] VITALS (14 sets, daily range): BP systolic 88–124; BP diastolic 49–82; PULSE 58–84; RESP 13–19; TEMP 97.4–98.6; O2SAT 91–100
[2023-02-08] MEDS: ACCU-CHEK COMFORT CURVE STRIP VI SCH ×5 (00:24→22:38)
[2023-02-08 06:47] LABS: Basophils # (auto) 0.1 10 ^3/uL (0-0.2); Eosinophils # (auto) 0.5 10 ^3/uL (0-0.8); Hemoglobin 8.1 g/dL (13.5-17.5); Monocytes # (auto) 0.7 10 ^3/uL (0-1.3); Neutrophils # (auto) 5.2 10 ^3/uL (1.6-8.6); White Blood Cell 7.7 10^3/uL (4.4-10.8)
[2023-02-08 06:50] LABS: Basophils % (auto) 0.7 % (0.0-2.0); Eosinophils % (auto) 6.7 % (0.0-7.0); Hematocrit 24.9 % (41.0-53.0); Lymphocytes # (auto) 1.3 10 ^3/uL (0.4-5.4); Lymphocytes % (auto) 16.5 % (10.0-50.0); Mean Corpuscular Hemoglobin 26.9 pg (28.0-32.0); Mean Corpuscular Hgb Conc. 32.4 g/dL (32.0-36.0); Neutrophils % (auto) 67.1 % (37.0-80.0); Red Cell Distribution Width 20.2 % (11.8-14.3)
[2023-02-08] MEDS: InsuLIN REG 1unit/0.01ml Soln (100units/ml) SC SCH ×4 (07:00→22:00)
[2023-02-08 07:13] LABS: BUN/Creatinine Ratio 14.3 (10.0-20.0); Potassium 4.1 mmol/L (3.5-5.1)
[2023-02-08] MEDS: ATORVASTATIN 20 MG TAB PO SCH (09:42)
[2023-02-08] MEDS: METOPROLOL TARTRATE 25 MG TAB PO SCH (09:43)
[2023-02-08] MEDS: SODIUM FERR GLUC 62.5MG/5ML 125 MG in SODIUM CHL 0.9% 100 ML IV SCH (12:00)
[2023-02-08] MEDS ORDERED: fentaNYL CITRATE 100 MCG/2 ML VL ONE (12:34)
[2023-02-08] MEDS ORDERED: IOHEXOL 350 MG/ML 100ML IJ ONE (12:34)
[2023-02-08] MEDS ORDERED: LIDOCAINE 2%HCL (LOCAL ANESTH.) INJ 20ML MDV ONE (12:34)
[2023-02-08] MEDS ORDERED: MIDAZOLAM HCL 2MG/2ML 2ml VIAL (1mg/ml) ONE (12:34)
[2023-02-08] MEDS: ALBUTEROL SULF 2.5 MG/0.5ML(0.5%) NEB SOLN NEB PRN (12:47)
[2023-02-08] MEDS: IPRATROPIUM BROM 0.5 MG/2.5ML INH SOL NEB PRN (12:47)
[2023-02-08] MEDS ORDERED: cefTRIAXone 1GM/50ML D5W 50 ML IV ONE (13:16)
[2023-02-08] MEDS ORDERED: HYDROmorphone HCL 2 MG/ML VL/or syr ONE (13:46)
[2023-02-08] MEDS ORDERED: LORazepam 2MG/ML-1ML VIAL IM ONE (16:30)
[2023-02-08] MEDS: TAMSULOSIN HYDROCHLORIDE 0.4 MG CAP PO SCH (18:20)
[2023-02-09] VITALS (10 sets, daily range): BP systolic 105–127; BP diastolic 50–67; PULSE 64–86; RESP 16–20; TEMP 97.9–98.8; O2SAT 92–100
[2023-02-09] MEDS: MORPHINE SULFATE INJ 2 MG/ml SYRG IV PRN ×2 (00:08→15:08)
[2023-02-09] MEDS: OXYCODONE W/ ACETAMINOPHEN 5/325MG TABLET PO PRN ×3 (03:30→20:21)
[2023-02-09] MEDS: InsuLIN REG 1unit/0.01ml Soln (100units/ml) SC SCH ×4 (06:10→21:31)
[2023-02-09] MEDS: ACCU-CHEK COMFORT CURVE STRIP VI SCH ×5 (06:11→21:31)
[2023-02-09 06:47] LABS: Basophils # (auto) 0.1 10 ^3/uL (0-0.2); Nucleated Red Blood Cells % 0.1 %
[2023-02-09 06:49] LABS: Basophils % (auto) 0.7 % (0.0-2.0); Eosinophils # (auto) 0.1 10 ^3/uL (0-0.8); Eosinophils % (auto) 1.1 % (0.0-7.0); Hematocrit 26.6 % (41.0-53.0); Hemoglobin 8.6 g/dL (13.5-17.5); Lymphocytes # (auto) 1.1 10 ^3/uL (0.4-5.4); Lymphocytes % (auto) 8.3 % (10.0-50.0); Mean Corpuscular Hemoglobin 26.9 pg (28.0-32.0); Mean Corpuscular Hgb Conc. 32.4 g/dL (32.0-36.0); Monocytes # (auto) 0.8 10 ^3/uL (0-1.3); Monocytes % (auto) 5.9 % (0.0-12.0); Neutrophils # (auto) 11.6 10 ^3/uL (1.6-8.6); Red Blood Cells 3.21 10^6/uL (4.5-5.90); White Blood Cell 13.8 10^3/uL (4.4-10.8)
[2023-02-09 06:56] LABS: Red Cell Distribution Width 20.9 % (11.8-14.3)
[2023-02-09 07:07] LABS: Potassium 4.1 mmol/L (3.5-5.1)
[2023-02-09 07:25] LABS: BUN/Creatinine Ratio 13.6 (10.0-20.0); Calcium 8.4 mg/dL (8.5-10.1)
[2023-02-09] MEDS: ACETAMINOPHEN 325 MG TAB PO PRN (08:14)
[2023-02-09] MEDS: ATORVASTATIN 20 MG TAB PO SCH (10:18)
[2023-02-09] MEDS: METOPROLOL TARTRATE 25 MG TAB PO SCH (10:19)
[2023-02-09] MEDS: IPRATROPIUM BROM 0.5 MG/2.5ML INH SOL NEB PRN (11:03)
[2023-02-09] MEDS: ALBUTEROL SULF 2.5 MG/0.5ML(0.5%) NEB SOLN NEB PRN (11:03)
[2023-02-09] MEDS: LACTULOSE 20Gm/30ML SOLN PO PRN ×2 (11:53→20:21)
[2023-02-09] MEDS: SODIUM FERR GLUC 62.5MG/5ML 125 MG in SODIUM CHL 0.9% 100 ML IV SCH (11:54)
[2023-02-09] MEDS ORDERED: CALCIUM CARB 500 MG CHEW TAB PO PRN (16:00)
[2023-02-09] MEDS ORDERED: SODIUM CHLORIDE 0.9% 1,000 ML IV ONE (16:00)
[2023-02-09] MEDS: TAMSULOSIN HYDROCHLORIDE 0.4 MG CAP PO SCH (17:51)
[2023-02-10] VITALS (8 sets, daily range): BP systolic 113–130; BP diastolic 46–74; PULSE 69–87; RESP 14–20; TEMP 97.5–99.1; O2SAT 93–98
[2023-02-10] MEDS: OXYCODONE W/ ACETAMINOPHEN 5/325MG TABLET PO PRN ×2 (04:41→11:22)
[2023-02-10] MEDS: LACTULOSE 20Gm/30ML SOLN PO PRN (04:41)
[2023-02-10] MEDS: InsuLIN REG 1unit/0.01ml Soln (100units/ml) SC SCH ×4 (06:37→22:00)
[2023-02-10] MEDS: MORPHINE SULFATE INJ 2 MG/ml SYRG IV PRN (08:17)
[2023-02-10 08:41] LABS: Basophils # (auto) 0.1 10 ^3/uL (0-0.2); Basophils % (auto) 0.6 % (0.0-2.0); Eosinophils # (auto) 0.3 10 ^3/uL (0-0.8); Eosinophils % (auto) 2.9 % (0.0-7.0); Hematocrit 24.6 % (41.0-53.0); Hemoglobin 7.9 g/dL (13.5-17.5); Lymphocytes % (auto) 9.6 % (10.0-50.0); Mean Corpuscular Hemoglobin 26.9 pg (28.0-32.0); Mean Corpuscular Hgb Conc. 32.1 g/dL (32.0-36.0); Mean Corpuscular Volume 83.7 fL (80.0-100.0); Monocytes # (auto) 0.7 10 ^3/uL (0-1.3); Monocytes % (auto) 6.1 % (0.0-12.0); Neutrophils # (auto) 8.7 10 ^3/uL (1.6-8.6); Neutrophils % (auto) 80.8 % (37.0-80.0); Red Blood Cells 2.94 10^6/uL (4.5-5.90); Red Cell Distribution Width 20.9 % (11.8-14.3); White Blood Cell 10.8 10^3/uL (4.4-10.8)
[2023-02-10 08:57] LABS: BUN/Creatinine Ratio 10.4 (10.0-20.0); Calcium 8.1 mg/dL (8.5-10.1); Potassium 3.8 mmol/L (3.5-5.1)
[2023-02-10] MEDS: METOPROLOL TARTRATE 25 MG TAB PO SCH (09:41)
[2023-02-10] MEDS: ATORVASTATIN 20 MG TAB PO SCH (09:42)
[2023-02-10] MEDS: ACCU-CHEK COMFORT CURVE STRIP VI SCH ×2 (11:25→17:44)
[2023-02-10] MEDS: SODIUM FERR GLUC 62.5MG/5ML 125 MG in SODIUM CHL 0.9% 100 ML IV SCH (12:55)
[2023-02-10] MEDS: HYDROmorphone HCL 2 MG/ML VL/or syr IV PRN ×4 (14:09→22:16)
[2023-02-10] MEDS: TAMSULOSIN HYDROCHLORIDE 0.4 MG CAP PO SCH (17:36)
[2023-02-11] VITALS (7 sets, daily range): BP systolic 107–131; BP diastolic 52–71; PULSE 70–98; RESP 14–71; TEMP 98–98.2; O2SAT 90–100
[2023-02-11] MEDS: ACCU-CHEK COMFORT CURVE STRIP VI SCH ×5 (00:24→21:13)
[2023-02-11] MEDS: HYDROmorphone HCL 2 MG/ML VL/or syr IV PRN ×7 (01:59→23:40)
[2023-02-11 05:52] LABS: Basophils # (auto) 0 10 ^3/uL (0-0.2); Basophils % (auto) 0.2 % (0.0-2.0); Eosinophils # (auto) 0.3 10 ^3/uL (0-0.8); Eosinophils % (auto) 3.5 % (0.0-7.0); Hematocrit 25.9 % (41.0-53.0); Hemoglobin 8.3 g/dL (13.5-17.5); Lymphocytes % (auto) 11.2 % (10.0-50.0); Mean Corpuscular Hemoglobin 26.9 pg (28.0-32.0); Monocytes # (auto) 0.7 10 ^3/uL (0-1.3); Monocytes % (auto) 7.5 % (0.0-12.0); Neutrophils # (auto) 7.3 10 ^3/uL (1.6-8.6); Neutrophils % (auto) 77.6 % (37.0-80.0); Nucleated Red Blood Cells % 0.1 %; Red Blood Cells 3.08 10^6/uL (4.5-5.90); White Blood Cell 9.4 10^3/uL (4.4-10.8)
[2023-02-11 05:53] LABS: Red Cell Distribution Width 20.9 % (11.8-14.3)
[2023-02-11 06:23] LABS: BUN/Creatinine Ratio 9.9 (10.0-20.0); Calcium 8.4 mg/dL (8.5-10.1); Potassium 4.2 mmol/L (3.5-5.1)
[2023-02-11] MEDS: InsuLIN REG 1unit/0.01ml Soln (100units/ml) SC SCH ×4 (07:00→21:13)
[2023-02-11] MEDS: METOPROLOL TARTRATE 25 MG TAB PO SCH (08:26)
[2023-02-11] MEDS: ATORVASTATIN 20 MG TAB PO SCH (08:26)
[2023-02-11] MEDS: ACETAMINOPHEN 325 MG TAB PO PRN (10:23)
[2023-02-11] MEDS: SODIUM FERR GLUC 62.5MG/5ML 125 MG in SODIUM CHL 0.9% 100 ML IV SCH (13:10)
[2023-02-11] MEDS: TAMSULOSIN HYDROCHLORIDE 0.4 MG CAP PO SCH (18:26)
[2023-02-12] MEDS: ACETAMINOPHEN 325 MG TAB PO PRN (01:18)
[2023-02-12] MEDS: HYDROmorphone HCL 2 MG/ML VL/or syr IV PRN ×5 (01:52→12:48)
[2023-02-12] MEDS: LACTULOSE 20Gm/30ML SOLN PO PRN (04:15)
[2023-02-12 05:00] VITALS: BP 105/49; PULSE 80; RESP 17; TEMP 98; O2SAT 91
[2023-02-12] MEDS: ACCU-CHEK COMFORT CURVE STRIP VI SCH ×2 (06:25→11:30)
[2023-02-12] MEDS: InsuLIN REG 1unit/0.01ml Soln (100units/ml) SC SCH ×2 (07:06→11:30)
[2023-02-12 08:00] VITALS: PULSE 81
[2023-02-12 08:19] VITALS: BP 106/43; PULSE 93
[2023-02-12] MEDS: METOPROLOL TARTRATE 25 MG TAB PO SCH ×2 (08:56→13:32)
[2023-02-12] MEDS: ATORVASTATIN 20 MG TAB PO SCH (08:56)
[2023-02-12 09:00] VITALS: BP 109/54; PULSE 109; RESP 18; TEMP 98.1; O2SAT 93
[2023-02-12 09:26] VITALS: BP 109/54; PULSE 109; RESP 18; O2SAT 93
[2023-02-12] MEDS ORDERED: OXYCODONE W/ ACETAMINOPHEN 5/325MG TABLET PO ONE (10:45)
[2023-02-12] MEDS: SODIUM FERR GLUC 62.5MG/5ML 125 MG in SODIUM CHL 0.9% 100 ML IV SCH (12:00)
[2023-02-12] MEDS ORDERED: HYDR2TAB58 PO (12:13)
[2023-02-12 12:48] VITALS: BP 122/53; PULSE 95; RESP 18
== END 2023-02-12 13:25 | disposition hospice, home (50) | DRG 686 ==
LOC: ER 07:43 → TELE 12:10 → TELE-WESTW 23:11
PROVIDERS: ADMIT Nurse Practitioner Family; ATTEND Nurse Practitioner Acute Care
PROC: 30233N1 Transfusion of Nonautologous Red Blood Cells into Peripheral Vein, Percutaneous Approach (ICD-10-PCS; principal; 2023-02-05)
PROC: 0T913ZZ Drainage of Left Kidney, Percutaneous Approach (ICD-10-PCS; 2023-02-08)
DX: C67.9 Malignant neoplasm of bladder, unspecified (principal); E43 Unspecified severe protein-calorie malnutrition; D62 Acute posthemorrhagic anemia; N17.9 Acute kidney failure, unspecified; R31.0 Gross hematuria; D50.9 Iron deficiency anemia, unspecified; Z66 Do not resuscitate; N18.2 Chronic kidney disease, stage 2 (mild); I12.9 Hypertensive chronic kidney disease with stage 1 through stage 4 chronic kidney disease, or unspecified chronic kidney disease; E11.22 Type 2 diabetes mellitus with diabetic chronic kidney disease; E78.5 Hyperlipidemia, unspecified; F17.210 Nicotine dependence, cigarettes, uncomplicated; J43.9 Emphysema, unspecified; Z68.21 Body mass index [BMI] 21.0-21.9, adult; Z51.5 Encounter for palliative care; F41.9 Anxiety disorder, unspecified; F32.A Depression, unspecified; G47.30 Sleep apnea, unspecified; I95.9 Hypotension, unspecified; Z91.199 Patient's noncompliance with other medical treatment and regimen due to unspecified reason
CPT/HCPCS: 36415; 71045; 74176; 74425; 76775; 76942; 80048; 80053; 81001; 82962; 83540; 83550; 84484; 85014; 85018; 85025; 85610; 85730; 86803; 86850; 86900; 86901; 86920; 87081; 87340; 93005; 94640; 96374; 99152; 99153; G0378; J0696; J1815; J2250; J2405